=== PATIENT | female | born 1955 | race Caucasian/White ===

== ENCOUNTER → 2024-02-24 06:40 | Day surgery (SDC) | payer OTHER, SELFPAY ==
[2024-02-24 08:21] LABS: Glucose - Point of Care 147 mg/dl (70-99)
== END ==
LOC: GI 06:40
PROVIDERS: ATTENDING PHYSICIAN Internal Medicine Gastroenterology; FAMILY PHYSICIAN Family Medicine
DX: K22.70 Barrett's esophagus without dysplasia (principal); R12 Heartburn; Z53.8 Procedure and treatment not carried out for other reasons
CPT/HCPCS: 43235; 82962

== ENCOUNTER → 2024-06-21 06:29 | Day surgery (SDC) | payer MEDICARE, OTHER, SELFPAY ==
[2024-06-21 08:53] LABS: Glucose - Point of Care 139 mg/dl (70-99)
== END ==
LOC: GI 06:29
PROVIDERS: ATTENDING PHYSICIAN Internal Medicine Gastroenterology; FAMILY PHYSICIAN Family Medicine
DX: K31.89 Other diseases of stomach and duodenum (principal); R12 Heartburn; Z87.19 Personal history of other diseases of the digestive system
CPT/HCPCS: 43239; 88305; 82962; 88342

== ENCOUNTER → 2024-06-27 08:48 | Outpatient (REF) | payer MEDICARE, OTHER, SELFPAY | LOC: WDC 08:48 | PROVIDERS: ATTENDING PHYSICIAN Obstetrics & Gynecology; FAMILY PHYSICIAN Family Medicine | DX: Z12.31 Encounter for screening mammogram for malignant neoplasm of breast (principal) | CPT/HCPCS: 77063; 77067 ==

== ENCOUNTER → 2025-06-29 08:46 | Outpatient (REF) | payer MEDICARE, OTHER, SELFPAY | LOC: WDC 08:46 | PROVIDERS: ATTENDING PHYSICIAN Obstetrics & Gynecology; FAMILY PHYSICIAN Family Medicine | DX: Z12.31 Encounter for screening mammogram for malignant neoplasm of breast (principal) | CPT/HCPCS: 77063; 77067 ==